=== PATIENT | female | born 1955 | race Caucasian/White ===

== ENCOUNTER 2023-01-08 03:11 | Emergency (ER) | payer OTHER ==
[2023-01-08 03:17] VITALS: BP 154/88; PULSE 80; RESP 18; TEMP 98.3; BMI 28.3
== END 2023-01-08 05:05 | disposition home or self-care (01) ==
LOC: JER 03:11
DX: S00.83XA Contusion of other part of head, initial encounter (principal); S80.01XA Contusion of right knee, initial encounter; S50.01XA Contusion of right elbow, initial encounter; W01.0XXA Fall on same level from slipping, tripping and stumbling without subsequent striking against object, initial encounter; Y99.0 Civilian activity done for income or pay
CPT/HCPCS: 70450-TC; 72125-TC; 73060-TC-RT-FY; 73070-TC-RT-FY; 73560-TC-RT-FY; 99284-25